=== PATIENT | male | born 1950 | race African-American/Black ===

== ENCOUNTER 2017-02-21 09:12 | Inpatient (IN) | payer OTHER ==
[2017-02-21 09:54] VITALS: BMI 38.5
--- NOTE | 2017-02-21 11:52 | HP ---
CIWA Score - CIWA Score Nausea/Vomitin Muscle Tremors: None Anxiety: 4-Mod. Anxious/Guarded Agitation: 3 Paroxysmal Sweats: 3 Orientation: 0-Oriented Tacttile Disturbances: 1-Very Mild Itch/Numbness Auditory Disturbances: 0-None Visual Disturbances: 0-None Headache: 0-None Present CIWA-Ar Total Score: 14 Admission ROS [facility] - HPI Allergies/Adverse Reactions: Allergies Allergy/AdvReac Type Severity Reaction Status Date / Time No Known Allergies Allergy Unverified 04/02/12 12:28 History of Present Illness: I'm sick and tired of drinking alcohol Exam Limitations: No Limitations - Ebola screening Have you traveled outside of the country in the last 21 days: No (N) Have you had contact with anyone from an Ebola affected area: No Have you been sick,other than usual withdrawal symptoms: No Do you have a fever: No - Review of Systems Constitutional: Chills EENT: reports: No Symptoms Reported Respiratory: reports: Shortness of Breath (occasional) Cardiac: reports: No Symptoms Reported GI: reports: Nausea : reports: Incontinence Musculoskeletal: reports: Muscle Pain Integumentary: reports: No Symptoms Reported Neuro: reports: Numbness (in fingers), Tingling Endocrine: reports: No Symptoms Reported Hematology: reports: Anemia Psychiatric: reports: Anxious Patient History - Patient Medical History Hx Asthma: Yes Hx Chronic Obstructive Pulmonary Disease (COPD): No Hx Cardiac Disorders: Yes (mild [place] 5-6 years ago; Angina) Hx Hypertension: Yes Hx Hypercholesterolemia: Yes Hx Seizures: No Hx Diabetes: Yes (BGM-153 (borderline, not on meds)) Hx Gastrointestinal Disorders: No Hx Genitourinary Disorders: No Hx Sexually Transmitted Disorders: No Hx Renal Disease (ESRD): No Hx Thyroid Disease: No Hx Human Immunodeficiency Virus (HIV): No Hx Hepatitis C: No Hx Depression: No Hx Suicide Attempt: No Hx Bipolar Disorder: No Hx Schizophrenia: No - Patient Surgical History Past Surgical History: Yes Hx Neurologic Surgery: No Hx Cataract Extraction: No Hx Cardiac Surgery: No Hx Lung Surgery: No Hx Breast Surgery: No Hx Breast Biopsy: No Hx Abdominal Surgery: No Hx Appendectomy: No Hx Genitourinary Surgery: No Hx Orthopedic Surgery: Yes (fx jaw > 10 years ago) Anesthesia Reaction: No - PPD History Previous Implant?: Yes Documented Results: Negative w/o proof Implanted On Prior [facility] Admission?: No PPD to be Administered?: Yes - Reproductive History Patient is a Female of Child Bearing Age (11 -55 yrs old): No (male patient) - Smoking Cessation Smoking history: Never smoked - Substance & Tx. History Hx Alcohol Use: Yes Substance Use Type: Alcohol - Substances Abused Alcohol Route: Oral Frequency: Daily Amount used: vodka(1 pint) Age of first use: 12 Date of Last Use: 02/21/17 (last use 5am) Family Disease History - Family Disease History Family Disease History: Heart Disease: Mother (DM; from [place] at age 70's) , Sister ( from [place] at age 60's) Admission Physical Exam [facility] - Vital Signs Vital Signs: Vital Signs - 24 hr 02/21/17 09:52 Temperature 98.2 F Pulse Rate 72 Respiratory 20 Rate Blood Pressure 166/92 - Physical General Appearance: Yes: Within Normal Limits HEENTM: Yes: Within Normal Limits Respiratory: Yes: Within Normal Limits, Lungs Clear Neck: Yes: Within Normal Limits Breast: Yes: Within Normal Limits Cardiology: Yes: Within Normal Limits, Regular Rate, S1, S2 (apical rate 68 bpm) Abdominal: Yes: Within Normal Limits Genitourinary: Yes: Within Normal Limits Back: Yes: Within Normal Limits Musculoskeletal: Yes: Within Normal Limits, full range of Motion, Gait Steady Extremities: Yes: Within Normal Limits Neurological: Yes: Within Normal Limits, Fully Oriented, Alert Integumentary: Yes: Within Normal Limits (skin very dry/scaly) Cleared for Admission [facility] - Detox or Rehab [facility] Level of Care: Medically Supervised [facility] Breath Alcohol Content Breath Alcohol Content: 0 Urine Drug Screen - Results Drug Screen Negative: Yes
[2017-02-21] MEDS ORDERED: MAGNESIUM HYDROX 2400MG/30ML ORAL SUSPENSION 30 ML CUP PO PRN (12:18)
[2017-02-21] MEDS ORDERED: MAG HYDROX/AL HYDROX/SIMETH 30 ML UNIT-DOSE CUP PO PRN (12:18)
[2017-02-21] MEDS ORDERED: P-EPHED 60MG/TRIPROLIDI 2.5MG TABLET PO PRN (12:18)
[2017-02-21] MEDS ORDERED: chlordiazePOXIDE HCL 25 MG CAPSULE PO PRN (12:18)
[2017-02-21] MEDS ORDERED: MENTHOL/PHENOL 1 EACH UD MM PRN (12:18)
[2017-02-21] MEDS ORDERED: LOPERAMIDE HCL 2 MG CAPSULE PO PRN (12:18)
[2017-02-21] MEDS ORDERED: ACETAMINOPHEN 325 MG TABLET (FP) PO PRN (12:18)
[2017-02-21] MEDS ORDERED: guaiFENesin/D-METHORPHAN HB 10 ML UNIT-DOSE CUPS PO PRN (12:18)
[2017-02-21] MEDS ORDERED: MAGNESIUM CITRATE 300 ML BOTTLE PO PRN (12:18)
[2017-02-21] MEDS ORDERED: chlordiazePOXIDE HCL 25 MG CAPSULE PO ONE (12:29)
[2017-02-21] MEDS: AMMONIUM LACTATE 12% LOTION 225 GM BOTTLE TP SCH ×2 (13:19→22:11)
--- NOTE | 2017-02-21 15:11 | EKG ---
Test Reason : Blood Pressure : / mmHG Vent. Rate : 069 BPM Atrial Rate : 069 BPM P-R Int : 206 ms QRS Dur : 146 ms QT Int : 470 ms P-R-T Axes : 030 -38 164 degrees QTc Int : 503 ms NORMAL SINUS RHYTHM Ventricular-paced rhythm ABNORMAL ECG NO PREVIOUS ECGS AVAILABLE Confirmed by Lj Brooks ([id number]) on 02/21/2017 3:11:24 PM Referred By: Confirmed By:Lj Brooks
[2017-02-21] MEDS ORDERED: DOCUSATE SODIUM 100 MG CAPSULE (FP) PO PRN (15:16)
[2017-02-21] MEDS ORDERED: NITROGLYCERIN SUBLINGUAL 1/150 0.4 MG TAB SL PRN (15:16)
--- NOTE | 2017-02-21 15:19 | PN ---
[facility] Progress Note Note: Results of Admission ECG's noted. Patient reports history of cardiac disorder and that he periodically consults outside attendance clerk, however, he is uncertain about specific types of cardiac disorder that he currently has. Patient denies chest pain / tightness and dizziness. Patient reports SOB, but reports chronic history of that symptom. Patient observed ambulating on unit with assistance of a cane. Dr. Delmar MD consulted on this matter. Repeat ECG ordered for tomorrow AM. Will re-evaluate at that time. Rafaela Garcia NP
[2017-02-21] MEDS: INSULIN SLIDING SCALE (NOVOLOG) 1 VIAL SQ SCH (17:04)
[2017-02-21] MEDS: chlordiazePOXIDE HCL 25 MG CAPSULE PO SCH ×2 (17:27→22:13)
[2017-02-21] MEDS: RANOLAZINE E.R. 500 MG TABLET (FP) PO SCH (22:13)
[2017-02-21] MEDS: THIAMINE HCL 100 MG TABLET (FP) PO SCH (22:13)
[2017-02-21] MEDS: VITAMINS A AND D TOPICAL OINTMENT 60 GM TUBE TP SCH (22:13)
[2017-02-21 22:25] LABS: URINE APPEARANCE CLEAR; URINE BILIRUBIN NEGATIVE (NEGATIVE); URINE BLOOD 1+ (NEGATIVE); URINE COLOR LTYELLOW; URINE GLUCOSE (UA) NEGATIVE (NEGATIVE); URINE KETONE NEGATIVE (NEGATIVE); URINE LEUK ESTERASE NEGATIVE (NEGATIVE); URINE NITRITE NEGATIVE (NEGATIVE); URINE UROBILINOGEN NEGATIVE mg/dL (0.2-1.0)
[2017-02-21 22:45] LABS: URINE PROTEIN 3+ (NEGATIVE)
[2017-02-21 23:13] LABS: URINE MUCUS RARE
[2017-02-22] MEDS: chlordiazePOXIDE HCL 25 MG CAPSULE PO SCH (06:03)
[2017-02-22] MEDS: INSULIN SLIDING SCALE (NOVOLOG) 1 VIAL SQ SCH ×3 (08:01→16:43)
[2017-02-22 09:52] LABS: CHLORIDE 111 mmol/L (98-107); HEMATOCRIT 39.2 % (35.4-49); HEMOGLOBIN 12.3 GM/dL (11.7-16.9); MCH 26.2 pg (25.7-33.7); MCHC 31.5 g/dl (32.0-35.9); MEAN CELL VOLUME 83.2 fl (80-96); MEAN PLT VOLUME 9.3 fl (7.5-11.1); PLATELET COUNT 238 K/MM3 (134-434); POTASSIUM 4.2 mmol/L (3.5-5.1); RBC 4.71 M/mm3 (4.00-5.60); RDW 14.8 % (11.9-15.9); SODIUM 145 mmol/L (136-145); WHITE BLOOD COUNT 6.2 K/mm3 (4.0-10.0)
[2017-02-22 10:10] LABS: ALBUMIN 3.3 g/dl (3.4-5.0); ALK PHOS 82 U/L (45-117); ANION GAP 6 (8-16); BILIRUBIN,TOTAL 0.6 mg/dL (0.2-1.0); BLOOD UREA NITROGEN 26 mg/dL (7-18); CALCIUM 9.6 mg/dL (8.5-10.1); CO2 28 mmol/L (21-32); CREATININE 2.2 mg/dL (0.7-1.3); GLUCOSE,RANDOM 116 mg/dL (74-106); SGOT/AST 16 U/L (15-37); SGPT/ALT 30 U/L (12-78); TOT PROT 7.4 g/dl (6.4-8.2)
--- NOTE | 2017-02-22 10:10 | PN ---
[facility] CIWA - CIWA Score Nausea/Vomitin-No Nausea/No Vomiting Muscle Tremors: 3 Anxiety: 3 Agitation: 3 Paroxysmal Sweats: 1-Minimal Palms Moist Orientation: 0-Oriented Tacttile Disturbances: 3-Moderate Itch/Numb/Burn Auditory Disturbances: 0-None Visual Disturbances: 0-None Headache: 0-None Present CIWA-Ar Total Score: 13 [facility] Progress Note (SOAP) Subjective: PT IS VERY SLEEPY AT ROUNDS BUT COMMUNICATIVE. STATES "THE MEDICINE KNOCKED ME OUT". ALERT O X 3 BUT POOR HISTORIAN REGARDING MEDICAL HX WHEN ASKED. Objective: 02/22/17 10:05 Vital Signs Temperature 96.3 F L 02/22/17 06:14 Pulse Rate 66 02/22/17 06:14 Respiratory Rate 18 02/22/17 06:14 Blood Pressure 139/68 02/22/17 06:14 O2 Sat by Pulse Oximetry (%) Laboratory Last Values WBC 6.2 K/mm3 (4.0-10.0) 02/22/17 06:00 RBC 4.71 M/mm3 (4.00-5.60) 02/22/17 06:00 Hgb 12.3 GM/dL (11.7-16.9) 02/22/17 06:00 Hct 39.2 % (35.4-49) 02/22/17 06:00 MCV 83.2 fl (80-96) 02/22/17 06:00 MCH 26.2 pg (25.7-33.7) 02/22/17 06:00 MCHC 31.5 g/dl (32.0-35.9) L 02/22/17 06:00 RDW 14.8 % (11.9-15.9) 02/22/17 06:00 Plt Count 238 K/MM3 (134-434) 02/22/17 06:00 MPV 9.3 fl (7.5-11.1) 02/22/17 06:00 Sodium 145 mmol/L (136-145) 02/22/17 06:00 Potassium 4.2 mmol/L (3.5-5.1) 02/22/17 06:00 Chloride 111 mmol/L (98-107) H 02/22/17 06:00 POC Glucometer 98 UNITS (80-120) 02/21/17 16:52 Ammonia 40.23 umol/L (11-32) H 02/22/17 07:30 Urine Color Ltyellow 02/21/17 15:45 Urine Appearance Clear 02/21/17 15:45 Urine pH 5.0 (5.0-8.0) 02/21/17 15:45 Ur Specific [place] 1.022 (1.001-1.035) 02/21/17 15:45 Urine Protein 3+ (NEGATIVE) H 02/21/17 15:45 Urine Glucose (UA) Negative (NEGATIVE) 02/21/17 15:45 Urine Ketones Negative (NEGATIVE) 02/21/17 15:45 Urine Blood 1+ (NEGATIVE) H 02/21/17 15:45 Urine Nitrite Negative (NEGATIVE) 02/21/17 15:45 Urine Bilirubin Negative (NEGATIVE) 02/21/17 15:45 Urine Urobilinogen Negative mg/dL (0.2-1.0) 02/21/17 15:45 Urine WBC (Auto) 1 /hpf (3-5) 02/21/17 15:45 Urine RBC (Auto) 2 /hpf (0-3) 02/21/17 15:45 Urine Mucus Rare 02/21/17 15:45 Hepatitis C Antibody <0.1 s/co ratio (0.0-0.9) 02/21/17 12:00 EKG REPEAT: SINUS BRADYCARDIA LEFT AXIS DEVIATION LEFT BUNDLE BRANCH BLOCK ABNORMAL EKG 02/22/17 10:10 DENIES CP, SOB, DIZZINESS. Assessment: 02/22/17 10:11 WITHDRAWAL SX ABNORMAL EKG--ASYMPTOMATIC Plan: CONTINUE MONITOR AND INTERVENE NEEDED. HOLD LIBRIUM X 24 HRS RE-EVALUATE IN AM
[2017-02-22] MEDS: amLODIPine BESYLATE 10 MG TABLET (FP) PO SCH (10:31)
[2017-02-22] MEDS: LISINOPRIL 20 MG TABLET (FP) PO SCH (10:31)
[2017-02-22] MEDS: ASPIRIN COATED 81 MG TABLET.EC PO SCH (10:31)
[2017-02-22] MEDS: RANOLAZINE E.R. 500 MG TABLET (FP) PO SCH ×2 (10:31→21:37)
[2017-02-22] MEDS: PRENATAL VITAMINS W/ FOLIC ACID TABLET (FP) PO SCH (10:31)
[2017-02-22] MEDS: VITAMINS A AND D TOPICAL OINTMENT 60 GM TUBE TP SCH ×2 (10:31→21:46)
[2017-02-22] MEDS: ISOSORBIDE MONONITRATE 60 MG TAB.SR.24H (FP) PO SCH (10:31)
[2017-02-22] MEDS: METOPROLOL SUCCINATE 25 MG TAB.SR.24H (FP) PO SCH (10:32)
[2017-02-22] MEDS: IBUPROFEN 400 MG TABLET (FP) PO PRN ×2 (10:33→17:18)
[2017-02-22] MEDS: AMMONIUM LACTATE 12% LOTION 225 GM BOTTLE TP SCH ×2 (10:35→21:47)
--- NOTE | 2017-02-22 13:27 | EKG ---
Test Reason : Blood Pressure : / mmHG Vent. Rate : 057 BPM Atrial Rate : 057 BPM P-R Int : 204 ms QRS Dur : 150 ms QT Int : 496 ms P-R-T Axes : 042 -44 134 degrees QTc Int : 482 ms SINUS BRADYCARDIA LEFT AXIS DEVIATION LEFT BUNDLE BRANCH BLOCK ABNORMAL ECG WHEN COMPARED WITH ECG OF 21-FEB-2017 14:07, T WAVE INVERSION NO LONGER EVIDENT IN INFERIOR LEADS Confirmed by PEDRO LUIS MONTELONGO, CLAUDIA ([id number]) on 02/22/2017 1:27:20 PM Referred By: Confirmed By:CLAUDIA CLOUD MD
[2017-02-22] MEDS ORDERED: chlordiazePOXIDE HCL 25 MG CAPSULE PO SCH (17:00)
--- NOTE | 2017-02-22 17:31 | PN ---
[facility] Progress Note Note: RECEIVED NURSE CALL THAT AMMONIA SERUM LEVEL 40.23 TWO DOSES OF LACTULOSE REPEAT AMMONIA SERUM LEVEL 02/24/17
[2017-02-22] MEDS: LACTULOSE 20 GM/30 ML UDC (FOR ORAL USE ONLY) PO SCH ×2 (18:07→21:37)
[2017-02-22] MEDS: THIAMINE HCL 100 MG TABLET (FP) PO SCH (21:37)
[2017-02-22] MEDS: ROSUVASTATIN CA 20 MG TABLET (FP) PO SCH (21:37)
[2017-02-23] MEDS: INSULIN SLIDING SCALE (NOVOLOG) 1 VIAL SQ SCH ×2 (06:25→16:59)
[2017-02-23] MEDS: ASPIRIN COATED 81 MG TABLET.EC PO SCH (10:36)
[2017-02-23] MEDS: RANOLAZINE E.R. 500 MG TABLET (FP) PO SCH ×2 (10:36→21:45)
[2017-02-23] MEDS: LISINOPRIL 20 MG TABLET (FP) PO SCH (10:36)
[2017-02-23] MEDS: amLODIPine BESYLATE 10 MG TABLET (FP) PO SCH (10:36)
[2017-02-23] MEDS: METOPROLOL SUCCINATE 25 MG TAB.SR.24H (FP) PO SCH (10:36)
[2017-02-23] MEDS: ISOSORBIDE MONONITRATE 60 MG TAB.SR.24H (FP) PO SCH (10:36)
[2017-02-23] MEDS: PRENATAL VITAMINS W/ FOLIC ACID TABLET (FP) PO SCH (10:36)
[2017-02-23] MEDS: AMMONIUM LACTATE 12% LOTION 225 GM BOTTLE TP SCH ×2 (10:36→22:42)
[2017-02-23] MEDS: ROSUVASTATIN CA 20 MG TABLET (FP) PO SCH (10:36)
--- NOTE | 2017-02-23 10:36 | PN ---
[facility] CIWA - CIWA Score Nausea/Vomitin-No Nausea/No Vomiting Muscle Tremors: 3 Anxiety: 4-Mod. Anxious/Guarded Agitation: 3 Paroxysmal Sweats: 1-Minimal Palms Moist Orientation: 0-Oriented Tacttile Disturbances: 3-Moderate Itch/Numb/Burn Auditory Disturbances: 0-None Visual Disturbances: 0-None Headache: 0-None Present CIWA-Ar Total Score: 14 S Progress Note (SOAP) Subjective: ANXIETY,CHILLS,FATIGUE,BACK PAIN. PT STATES HE FELL AND LANDED ON BOTH KNEES AND HANDS WHILE REACHING OUT FOR LOTION ON HIS BEDSIDE TRAY FROM A SITTING POSITION ON A CHAIR. PT DENIES ANY INJURY OR PAIN. Objective: 02/23/17 10:33 Vital Signs Temperature 98.4 F 02/23/17 09:31 Pulse Rate 76 02/23/17 09:31 Respiratory Rate 18 02/23/17 09:31 Blood Pressure 124/72 02/23/17 09:31 O2 Sat by Pulse Oximetry (%) Laboratory Last Values WBC 6.2 K/mm3 (4.0-10.0) 02/22/17 06:00 RBC 4.71 M/mm3 (4.00-5.60) 02/22/17 06:00 Hgb 12.3 GM/dL (11.7-16.9) 02/22/17 06:00 Hct 39.2 % (35.4-49) 02/22/17 06:00 MCV 83.2 fl (80-96) 02/22/17 06:00 MCH 26.2 pg (25.7-33.7) 02/22/17 06:00 MCHC 31.5 g/dl (32.0-35.9) L 02/22/17 06:00 RDW 14.8 % (11.9-15.9) 02/22/17 06:00 Plt Count 238 K/MM3 (134-434) 02/22/17 06:00 MPV 9.3 fl (7.5-11.1) 02/22/17 06:00 Sodium 145 mmol/L (136-145) 02/22/17 06:00 Potassium 4.2 mmol/L (3.5-5.1) 02/22/17 06:00 Chloride 111 mmol/L (98-107) H 02/22/17 06:00 Carbon Dioxide 28 mmol/L (21-32) 02/22/17 06:00 Anion Gap 6 (8-16) L 02/22/17 06:00 BUN 26 mg/dL (7-18) H 02/22/17 06:00 Creatinine 2.2 mg/dL (0.7-1.3) H 02/22/17 06:00 Creat Clearance w eGFR 30.00 (>60) 02/22/17 06:00 POC Glucometer 94 UNITS (80-120) 02/22/17 16:23 Random Glucose 116 mg/dL (74-106) H 02/22/17 06:00 Calcium 9.6 mg/dL (8.5-10.1) 02/22/17 06:00 Total Bilirubin 0.6 mg/dL (0.2-1.0) 02/22/17 06:00 AST 16 U/L (15-37) 02/22/17 06:00 ALT 30 U/L (12-78) 02/22/17 06:00 Alkaline Phosphatase 82 U/L (45-117) 02/22/17 06:00 Ammonia 40.23 umol/L (11-32) H 02/22/17 07:30 Total Protein 7.4 g/dl (6.4-8.2) 02/22/17 06:00 Albumin 3.3 g/dl (3.4-5.0) L 02/22/17 06:00 Urine Color Ltyellow 02/21/17 15:45 Urine Appearance Clear 02/21/17 15:45 Urine pH 5.0 (5.0-8.0) 02/21/17 15:45 Ur Specific [place] 1.022 (1.001-1.035) 02/21/17 15:45 Urine Protein 3+ (NEGATIVE) H 02/21/17 15:45 Urine Glucose (UA) Negative (NEGATIVE) 02/21/17 15:45 Urine Ketones Negative (NEGATIVE) 02/21/17 15:45 Urine Blood 1+ (NEGATIVE) H 02/21/17 15:45 Urine Nitrite Negative (NEGATIVE) 02/21/17 15:45 Urine Bilirubin Negative (NEGATIVE) 02/21/17 15:45 Urine Urobilinogen Negative mg/dL (0.2-1.0) 02/21/17 15:45 Ur Leukocyte Esterase Negative (NEGATIVE) 02/21/17 15:45 Urine WBC (Auto) 1 /hpf (3-5) 02/21/17 15:45 Urine RBC (Auto) 2 /hpf (0-3) 02/21/17 15:45 Urine Mucus Rare 02/21/17 15:45 RPR Titer Nonreactive (NONREACTIVE) 02/22/17 06:00 Hepatitis C Antibody <0.1 s/co ratio (0.0-0.9) 02/21/17 12:00 Assessment: 02/23/17 10:33 WITHDRAWAL SX Plan: CONTINUE DETOX FALL PRECAUTIONS/PROTOCOL#2
[2017-02-23] MEDS: VITAMINS A AND D TOPICAL OINTMENT 60 GM TUBE TP SCH ×2 (10:37→22:43)
[2017-02-23] MEDS: chlordiazePOXIDE 5 MG CAPSULE PO SCH ×2 (17:26→22:42)
--- NOTE | 2017-02-23 18:00 | PN ---
[facility] Progress Note Note: hold librium 15 mg x 1 for dizziness continue fall protocol
[2017-02-23] MEDS: THIAMINE HCL 100 MG TABLET (FP) PO SCH (21:45)
[2017-02-23] MEDS: IBUPROFEN 400 MG TABLET (FP) PO PRN (21:54)
[2017-02-24] MEDS: chlordiazePOXIDE 5 MG CAPSULE PO SCH ×2 (07:05→12:01)
[2017-02-24] MEDS: INSULIN SLIDING SCALE (NOVOLOG) 1 VIAL SQ SCH ×2 (07:06→17:02)
[2017-02-24] MEDS: PRENATAL VITAMINS W/ FOLIC ACID TABLET (FP) PO SCH (10:23)
[2017-02-24] MEDS: METOPROLOL SUCCINATE 25 MG TAB.SR.24H (FP) PO SCH (10:23)
[2017-02-24] MEDS: AMMONIUM LACTATE 12% LOTION 225 GM BOTTLE TP SCH ×2 (10:24→22:22)
[2017-02-24] MEDS: ISOSORBIDE MONONITRATE 60 MG TAB.SR.24H (FP) PO SCH (10:24)
[2017-02-24] MEDS: amLODIPine BESYLATE 10 MG TABLET (FP) PO SCH (10:24)
[2017-02-24] MEDS: LISINOPRIL 20 MG TABLET (FP) PO SCH (10:24)
[2017-02-24] MEDS: ASPIRIN COATED 81 MG TABLET.EC PO SCH (10:24)
[2017-02-24] MEDS: IBUPROFEN 400 MG TABLET (FP) PO PRN ×2 (10:27→19:55)
[2017-02-24] MEDS: RANOLAZINE E.R. 500 MG TABLET (FP) PO SCH ×2 (11:49→22:19)
[2017-02-24] MEDS: ROSUVASTATIN CA 20 MG TABLET (FP) PO SCH (11:49)
[2017-02-24] MEDS: VITAMINS A AND D TOPICAL OINTMENT 60 GM TUBE TP SCH ×2 (11:49→22:22)
--- NOTE | 2017-02-24 11:59 | PN ---
S Progress Note (SOAP) Subjective: ALERT O X 3. SITTING IN BED WITH NAD. NO C/O DIZZINESS OR HEADACHE. Objective: 02/24/17 11:58 Vital Signs Temperature 97.5 F L 02/24/17 09:26 Pulse Rate 77 02/24/17 09:26 Respiratory Rate 20 02/24/17 09:26 Blood Pressure 161/84 02/24/17 09:26 O2 Sat by Pulse Oximetry (%) Laboratory Last Values WBC 6.2 K/mm3 (4.0-10.0) 02/22/17 06:00 RBC 4.71 M/mm3 (4.00-5.60) 02/22/17 06:00 Hgb 12.3 GM/dL (11.7-16.9) 02/22/17 06:00 Hct 39.2 % (35.4-49) 02/22/17 06:00 MCV 83.2 fl (80-96) 02/22/17 06:00 MCH 26.2 pg (25.7-33.7) 02/22/17 06:00 MCHC 31.5 g/dl (32.0-35.9) L 02/22/17 06:00 RDW 14.8 % (11.9-15.9) 02/22/17 06:00 Plt Count 238 K/MM3 (134-434) 02/22/17 06:00 MPV 9.3 fl (7.5-11.1) 02/22/17 06:00 Sodium 145 mmol/L (136-145) 02/22/17 06:00 Potassium 4.2 mmol/L (3.5-5.1) 02/22/17 06:00 Chloride 111 mmol/L (98-107) H 02/22/17 06:00 Carbon Dioxide 28 mmol/L (21-32) 02/22/17 06:00 Anion Gap 6 (8-16) L 02/22/17 06:00 BUN 26 mg/dL (7-18) H 02/22/17 06:00 Creatinine 2.2 mg/dL (0.7-1.3) H 02/22/17 06:00 Creat Clearance w eGFR 30.00 (>60) 02/22/17 06:00 POC Glucometer 123 UNITS (80-120) 02/24/17 06:03 Random Glucose 116 mg/dL (74-106) H 02/22/17 06:00 Calcium 9.6 mg/dL (8.5-10.1) 02/22/17 06:00 Total Bilirubin 0.6 mg/dL (0.2-1.0) 02/22/17 06:00 AST 16 U/L (15-37) 02/22/17 06:00 ALT 30 U/L (12-78) 02/22/17 06:00 Alkaline Phosphatase 82 U/L (45-117) 02/22/17 06:00 Ammonia 40.23 umol/L (11-32) H 02/22/17 07:30 Total Protein 7.4 g/dl (6.4-8.2) 02/22/17 06:00 Albumin 3.3 g/dl (3.4-5.0) L 02/22/17 06:00 Urine Color Ltyellow 02/21/17 15:45 Urine Appearance Clear 02/21/17 15:45 Urine pH 5.0 (5.0-8.0) 02/21/17 15:45 Ur Specific [place] 1.022 (1.001-1.035) 02/21/17 15:45 Urine Protein 3+ (NEGATIVE) H 02/21/17 15:45 Urine Glucose (UA) Negative (NEGATIVE) 02/21/17 15:45 Urine Ketones Negative (NEGATIVE) 02/21/17 15:45 Urine Blood 1+ (NEGATIVE) H 02/21/17 15:45 Urine Nitrite Negative (NEGATIVE) 02/21/17 15:45 Urine Bilirubin Negative (NEGATIVE) 02/21/17 15:45 Urine Urobilinogen Negative mg/dL (0.2-1.0) 02/21/17 15:45 Ur Leukocyte Esterase Negative (NEGATIVE) 02/21/17 15:45 Urine WBC (Auto) 1 /hpf (3-5) 02/21/17 15:45 Urine RBC (Auto) 2 /hpf (0-3) 02/21/17 15:45 Urine Mucus Rare 02/21/17 15:45 RPR Titer Nonreactive (NONREACTIVE) 02/22/17 06:00 Hepatitis C Antibody <0.1 s/co ratio (0.0-0.9) 02/21/17 12:00 Assessment: 02/24/17 11:58 DECREASED WITHDRAWAL SX Plan: CONTINUE DETOX
[2017-02-24] MEDS: LACTULOSE 20 GM/30 ML UDC (FOR ORAL USE ONLY) PO SCH ×2 (15:06→22:22)
[2017-02-24] MEDS: chlordiazePOXIDE HCL 10 MG CAPSULE PO SCH ×2 (17:25→22:22)
[2017-02-24] MEDS: THIAMINE HCL 100 MG TABLET (FP) PO SCH (22:19)
[2017-02-25] MEDS: chlordiazePOXIDE HCL 10 MG CAPSULE PO SCH ×2 (05:47→10:33)
[2017-02-25] MEDS: INSULIN SLIDING SCALE (NOVOLOG) 1 VIAL SQ SCH (07:34)
[2017-02-25 09:49] VITALS: BP 158/85; PULSE 73; TEMP 97
[2017-02-25] MEDS: PRENATAL VITAMINS W/ FOLIC ACID TABLET (FP) PO SCH (10:33)
[2017-02-25] MEDS: METOPROLOL SUCCINATE 25 MG TAB.SR.24H (FP) PO SCH (10:33)
[2017-02-25] MEDS: ASPIRIN COATED 81 MG TABLET.EC PO SCH (10:33)
[2017-02-25] MEDS: LISINOPRIL 20 MG TABLET (FP) PO SCH (10:33)
[2017-02-25] MEDS: RANOLAZINE E.R. 500 MG TABLET (FP) PO SCH (10:33)
[2017-02-25] MEDS: amLODIPine BESYLATE 10 MG TABLET (FP) PO SCH (10:33)
[2017-02-25] MEDS: ISOSORBIDE MONONITRATE 60 MG TAB.SR.24H (FP) PO SCH (10:34)
[2017-02-25] MEDS: LACTULOSE 20 GM/30 ML UDC (FOR ORAL USE ONLY) PO SCH (10:34)
[2017-02-25] MEDS: ROSUVASTATIN CA 20 MG TABLET (FP) PO SCH (10:37)
[2017-02-25] MEDS: AMMONIUM LACTATE 12% LOTION 225 GM BOTTLE TP SCH (12:04)
[2017-02-25] MEDS: VITAMINS A AND D TOPICAL OINTMENT 60 GM TUBE TP SCH (12:04)
--- NOTE | 2017-02-25 19:11 | PN ---
S Progress Note (SOAP) Subjective: Late Entry Reports resolved withdrawal sx Objective: 02/25/17 19:09 Laboratory Last Values WBC 6.2 K/mm3 (4.0-10.0) 02/22/17 06:00 RBC 4.71 M/mm3 (4.00-5.60) 02/22/17 06:00 Hgb 12.3 GM/dL (11.7-16.9) 02/22/17 06:00 Hct 39.2 % (35.4-49) 02/22/17 06:00 MCV 83.2 fl (80-96) 02/22/17 06:00 MCH 26.2 pg (25.7-33.7) 02/22/17 06:00 MCHC 31.5 g/dl (32.0-35.9) L 02/22/17 06:00 RDW 14.8 % (11.9-15.9) 02/22/17 06:00 Plt Count 238 K/MM3 (134-434) 02/22/17 06:00 MPV 9.3 fl (7.5-11.1) 02/22/17 06:00 Sodium 145 mmol/L (136-145) 02/22/17 06:00 Potassium 4.2 mmol/L (3.5-5.1) 02/22/17 06:00 Chloride 111 mmol/L (98-107) H 02/22/17 06:00 Carbon Dioxide 28 mmol/L (21-32) 02/22/17 06:00 Anion Gap 6 (8-16) L 02/22/17 06:00 BUN 26 mg/dL (7-18) H 02/22/17 06:00 Creatinine 2.2 mg/dL (0.7-1.3) H 02/22/17 06:00 Creat Clearance w eGFR 30.00 (>60) 02/22/17 06:00 POC Glucometer 106 UNITS (80-120) 02/25/17 12:33 Random Glucose 116 mg/dL (74-106) H 02/22/17 06:00 Calcium 9.6 mg/dL (8.5-10.1) 02/22/17 06:00 Total Bilirubin 0.6 mg/dL (0.2-1.0) 02/22/17 06:00 AST 16 U/L (15-37) 02/22/17 06:00 ALT 30 U/L (12-78) 02/22/17 06:00 Alkaline Phosphatase 82 U/L (45-117) 02/22/17 06:00 Ammonia 87.2 umol/L (11-32) H 02/24/17 06:30 Total Protein 7.4 g/dl (6.4-8.2) 02/22/17 06:00 Albumin 3.3 g/dl (3.4-5.0) L 02/22/17 06:00 Urine Color Ltyellow 02/21/17 15:45 Urine Appearance Clear 02/21/17 15:45 Urine pH 5.0 (5.0-8.0) 02/21/17 15:45 Ur Specific [place] 1.022 (1.001-1.035) 02/21/17 15:45 Urine Protein 3+ (NEGATIVE) H 02/21/17 15:45 Urine Glucose (UA) Negative (NEGATIVE) 02/21/17 15:45 Urine Ketones Negative (NEGATIVE) 02/21/17 15:45 Urine Blood 1+ (NEGATIVE) H 02/21/17 15:45 Urine Nitrite Negative (NEGATIVE) 02/21/17 15:45 Urine Bilirubin Negative (NEGATIVE) 02/21/17 15:45 Urine Urobilinogen Negative mg/dL (0.2-1.0) 02/21/17 15:45 Ur Leukocyte Esterase Negative (NEGATIVE) 02/21/17 15:45 Urine WBC (Auto) 1 /hpf (3-5) 02/21/17 15:45 Urine RBC (Auto) 2 /hpf (0-3) 02/21/17 15:45 Urine Mucus Rare 02/21/17 15:45 RPR Titer Nonreactive (NONREACTIVE) 02/22/17 06:00 Hepatitis C Antibody <0.1 s/co ratio (0.0-0.9) 02/21/17 12:00 Labs noted Assessment: 02/25/17 19:09 Resolved withdrawal sx Plan: Transfer to rehab
--- NOTE | 2017-02-27 12:46 | DS ---
[facility] Detox Discharge Summary Admission Date: 02/21/17 Discharge Date: 02/25/17 - History Present History: Alcohol Dependence Additional Comments: patietn going to 5N rehab Pertinent Past History: anxiety, depression, insomnia, angina, nicotine dependence, HTN, dm, copnstipation - Physical Exam Results Vital Signs: Vital Signs Temperature 97.0 F L 02/25/17 09:48 Pulse Rate 73 02/25/17 09:48 Respiratory Rate 17 02/25/17 09:48 Blood Pressure 158/85 02/25/17 09:48 O2 Sat by Pulse Oximetry (%) Laboratory Tests 02/21/17 02/21/17 02/21/17 11:02 12:00 15:45 WBC RBC Hgb Hct MCV MCH MCHC RDW Plt Count MPV Sodium Potassium Chloride Carbon Dioxide Anion Gap BUN Creatinine Creat Clearance w eGFR POC Glucometer 153 Random Glucose Calcium Total Bilirubin AST ALT Alkaline Phosphatase Ammonia Total Protein Albumin Urine Color Ltyellow Urine Appearance Clear Urine pH 5.0 Ur Specific [place] 1.022 Urine Protein 3+ H Urine Glucose (UA) Negative Urine Ketones Negative Urine Blood 1+ H Urine Nitrite Negative Urine Bilirubin Negative Urine Urobilinogen Negative Ur Leukocyte Esterase Negative Urine WBC (Auto) 1 Urine RBC (Auto) 2 Urine Mucus Rare RPR Titer Hepatitis C Antibody <0.1 02/21/17 02/22/17 02/22/17 16:52 06:00 06:00 WBC 6.2 RBC 4.71 Hgb 12.3 Hct 39.2 MCV 83.2 MCH 26.2 MCHC 31.5 L RDW 14.8 Plt Count 238 MPV 9.3 Sodium 145 Potassium 4.2 Chloride 111 H Carbon Dioxide 28 Anion Gap 6 L BUN 26 H Creatinine 2.2 H Creat Clearance w eGFR 30.00 POC Glucometer 98 Random Glucose 116 H Calcium 9.6 Total Bilirubin 0.6 AST 16 ALT 30 Alkaline Phosphatase 82 Ammonia Total Protein 7.4 Albumin 3.3 L Urine Color Urine Appearance Urine pH Ur Specific [place] Urine Protein Urine Glucose (UA) Urine Ketones Urine Blood Urine Nitrite Urine Bilirubin Urine Urobilinogen Ur Leukocyte Esterase Urine WBC (Auto) Urine RBC (Auto) Urine Mucus RPR Titer Hepatitis C Antibody 02/22/17 02/22/17 02/22/17 06:00 07:30 16:23 WBC RBC Hgb Hct MCV MCH MCHC RDW Plt Count MPV Sodium Potassium Chloride Carbon Dioxide Anion Gap BUN Creatinine Creat Clearance w eGFR POC Glucometer 94 Random Glucose Calcium Total Bilirubin AST ALT Alkaline Phosphatase Ammonia 40.23 H Total Protein Albumin Urine Color Urine Appearance Urine pH Ur Specific [place] Urine Protein Urine Glucose (UA) Urine Ketones Urine Blood Urine Nitrite Urine Bilirubin Urine Urobilinogen Ur Leukocyte Esterase Urine WBC (Auto) Urine RBC (Auto) Urine Mucus RPR Titer Nonreactive Hepatitis C Antibody 02/23/17 02/24/17 02/24/17 16:30 06:03 06:30 WBC RBC Hgb Hct MCV MCH MCHC RDW Plt Count MPV Sodium Potassium Chloride Carbon Dioxide Anion Gap BUN Creatinine Creat Clearance w eGFR POC Glucometer 116 123 Random Glucose Calcium Total Bilirubin AST ALT Alkaline Phosphatase Ammonia 87.2 H Total Protein Albumin Urine Color Urine Appearance Urine pH Ur Specific [place] Urine Protein Urine Glucose (UA) Urine Ketones Urine Blood Urine Nitrite Urine Bilirubin Urine Urobilinogen Ur Leukocyte Esterase Urine WBC (Auto) Urine RBC (Auto) Urine Mucus RPR Titer Hepatitis C Antibody 02/24/17 02/25/17 13:27 12:33 WBC RBC Hgb Hct MCV MCH MCHC RDW Plt Count MPV Sodium Potassium Chloride Carbon Dioxide Anion Gap BUN Creatinine Creat Clearance w eGFR POC Glucometer 115 106 Random Glucose Calcium Total Bilirubin AST ALT Alkaline Phosphatase Ammonia Total Protein Albumin Urine Color Urine Appearance Urine pH Ur Specific [place] Urine Protein Urine Glucose (UA) Urine Ketones Urine Blood Urine Nitrite Urine Bilirubin Urine Urobilinogen Ur Leukocyte Esterase Urine WBC (Auto) Urine RBC (Auto) Urine Mucus RPR Titer Hepatitis C Antibody elevated bun and creatinine Pertinent Admission Physical Exam Findings: withdrawal sx - Medication Discharge Medications: Ambulatory Orders Amlodipine Besylate [Norvasc -] 10 mg PO DAILY 02/21/17 Aspirin [Aspirin EC] 81 mg PO DAILY 02/21/17 Ergocalciferol (Vitamin D2) [Vitamin D2] 50,000 unit PO WEEKLY 02/21/17 Isosorbide Mononitrate [Imdur -] 60 mg PO DAILY 02/21/17 Lisinopril 20 mg PO DAILY 02/21/17 Metoprolol Succinate [Toprol XL -] 25 mg PO DAILY 02/21/17 Nitroglycerin 0.4 mg SL PRN PRN 02/21/17 Ranolazine [Ranexa -] 500 mg PO BID 02/21/17 Rosuvastatin [Crestor -] 20 mg PO DAILY 02/21/17 - Diagnosis (1) Alcohol dependence Status: Acute (2) Alcohol-induced mood disorder Status: Acute (3) Angina pectoris Status: Chronic (4) Falls Status: Chronic Qualifiers: (5) HLD (hyperlipidemia) Status: Chronic Qualifiers: (6) HTN (hypertension) Status: Chronic Qualifiers: (7) Type 2 diabetes mellitus with hyperglycemia Status: Chronic (8) Use of cane as ambulatory aid Status: Chronic - AMA Did Patient Leave Against Medical Advice: No
== END 2017-02-25 01:18 | disposition other institution (70) | DRG 897 ==
LOC: YASAS 09:12 → Y3N 11:49
PROVIDERS: ADMIT Internal Medicine; ATTEND Internal Medicine
PROC: HZ2ZZZZ Detoxification Services for Substance Abuse Treatment (ICD-10-PCS; principal; 2017-02-21)
DX: F10.230 Alcohol dependence with withdrawal, uncomplicated (principal); F10.24 Alcohol dependence with alcohol-induced mood disorder; I25.119 Atherosclerotic heart disease of native coronary artery with unspecified angina pectoris; I10 Essential (primary) hypertension; E78.5 Hyperlipidemia, unspecified; E11.65 Type 2 diabetes mellitus with hyperglycemia; R26.89 Other abnormalities of gait and mobility; Z99.89 Dependence on other enabling machines and devices; Z91.81 History of falling; Z59.0 Homelessness
CPT/HCPCS: 36415; 80053; 81003; 81015; 82140; 82962; 85027; 86593; 86803; 93005; 93010

== ENCOUNTER 2017-02-25 13:32 | Inpatient (IN) | payer OTHER ==
--- NOTE | 2017-02-25 15:22 | HP ---
[facility] Rehab Assess/Revision - Admission History Date of Admission to Rehab: 02/25/17 - Findings Detox History & Physical reviewed: Yes Concur with findings: Yes Comments/Additional Findings: for rehab as regimen Inpatient Rehab Admission - Initial Determination Are CD services needed?: Yes Free of communicable disease: Yes Not in need of hospitalization: Yes - Rehab Admission Criteria Previous failed treatment: Yes Poor recovery environment: Yes Comorbidities: Yes Patient is meeting Inpatient Rehab admission criteria:: Yes
[2017-02-25] MEDS ORDERED: hydrOXYzine PAMOATE 25 MG CAPSULE (FP) PO PRN (15:24)
[2017-02-25] MEDS ORDERED: MAGNESIUM HYDROX 2400MG/30ML ORAL SUSPENSION 30 ML CUP PO PRN (15:24)
[2017-02-25] MEDS ORDERED: MENTHOL/PHENOL 1 EACH UD MM PRN (15:24)
[2017-02-25] MEDS ORDERED: MAGNESIUM CITRATE 300 ML BOTTLE PO PRN (15:24)
[2017-02-25] MEDS ORDERED: ACETAMINOPHEN 325 MG TABLET (FP) PO PRN (15:24)
[2017-02-25] MEDS ORDERED: MAG HYDROX/AL HYDROX/SIMETH 30 ML UNIT-DOSE CUP PO PRN (15:24)
[2017-02-25] MEDS ORDERED: guaiFENesin/D-METHORPHAN HB 10 ML UNIT-DOSE CUPS PO PRN (15:24)
[2017-02-25] MEDS ORDERED: P-EPHED 60MG/TRIPROLIDI 2.5MG TABLET PO PRN (15:24)
[2017-02-25] MEDS ORDERED: NITROGLYCERIN SUBLINGUAL 1/150 0.4 MG TAB SL PRN (15:25)
[2017-02-25] MEDS ORDERED: DOCUSATE SODIUM 100 MG CAPSULE (FP) PO PRN (15:25)
[2017-02-25] MEDS: IBUPROFEN 400 MG TABLET (FP) PO PRN (19:56)
[2017-02-25] MEDS: LOPERAMIDE HCL 2 MG CAPSULE PO PRN (19:57)
[2017-02-25] MEDS: THIAMINE HCL 100 MG TABLET (FP) PO SCH (21:29)
[2017-02-25] MEDS: RANOLAZINE E.R. 500 MG TABLET (FP) PO SCH (21:29)
[2017-02-26] MEDS: RANOLAZINE E.R. 500 MG TABLET (FP) PO SCH ×2 (09:53→21:31)
[2017-02-26] MEDS: ASPIRIN COATED 81 MG TABLET.EC PO SCH (09:53)
[2017-02-26] MEDS: METOPROLOL SUCCINATE 25 MG TAB.SR.24H (FP) PO SCH (09:53)
[2017-02-26] MEDS: amLODIPine BESYLATE 10 MG TABLET (FP) PO SCH (09:53)
[2017-02-26] MEDS: PRENATAL VITAMINS W/ FOLIC ACID TABLET (FP) PO SCH (09:53)
[2017-02-26] MEDS: LISINOPRIL 20 MG TABLET (FP) PO SCH (09:53)
[2017-02-26] MEDS ORDERED: ROSUVASTATIN CA 10 MG TABLET (FP) ONE (11:32)
[2017-02-26] MEDS: ISOSORBIDE MONONITRATE 30 MG TAB.SR.24H (FP) PO SCH (11:40)
[2017-02-26] MEDS: ROSUVASTATIN CA 20 MG TABLET (FP) PO SCH (11:41)
[2017-02-26] MEDS: THIAMINE HCL 100 MG TABLET (FP) PO SCH (21:31)
[2017-02-27] MEDS: ROSUVASTATIN CA 20 MG TABLET (FP) PO SCH (10:44)
[2017-02-27] MEDS: ASPIRIN COATED 81 MG TABLET.EC PO SCH (10:44)
[2017-02-27] MEDS: RANOLAZINE E.R. 500 MG TABLET (FP) PO SCH ×2 (10:45→21:36)
[2017-02-27] MEDS: ISOSORBIDE MONONITRATE 30 MG TAB.SR.24H (FP) PO SCH (10:45)
[2017-02-27] MEDS: METOPROLOL SUCCINATE 25 MG TAB.SR.24H (FP) PO SCH (10:45)
[2017-02-27] MEDS: amLODIPine BESYLATE 10 MG TABLET (FP) PO SCH (10:45)
[2017-02-27] MEDS: LISINOPRIL 20 MG TABLET (FP) PO SCH (10:45)
[2017-02-27] MEDS: PRENATAL VITAMINS W/ FOLIC ACID TABLET (FP) PO SCH (10:45)
[2017-02-27] MEDS: LOPERAMIDE HCL 2 MG CAPSULE PO PRN (11:17)
--- NOTE | 2017-02-27 11:56 | HP ---
Psychiatrist Admission - Data Date of interview: 02/27/17 Admission source: 3N Identifying data: This is the first 5n inpatient rehabilitation admisssion for this 67 year old single AA male father of 5, unemployed and supported on SSI, he is domiciled. Medical History: HTN,asthma, NIDDM, hyperlipedemia, angina pectoris, fx jaw. Psychiatric History: Patient reports treated for depression "long time ago", he cannot recall medications name, denies history of psychiatric hospitalizations and no history of suicidal attempts. Physical/Sexual Abuse/Trauma History: Patient denies Vital Signs: Vital Signs - 24 hr 02/27/17 02/27/17 00:40 07:16 Temperature 98.3 F Pulse Rate 83 Respiratory 18 18 Rate Blood Pressure 147/84 Allergies/Adverse Reactions: Allergies Allergy/AdvReac Type Severity Reaction Status Date / Time No Known Allergies Allergy Unverified 02/25/17 14:54 Date of last physical exam: 02/22/17 Concur with the findings of this exam: Yes - Substance Abuse/Tx History Hx Alcohol Use: Yes (age at first use 15 year old, daily drinks 1 liter of vodka.) Hx Substance Use: No Substance Use Type: Alcohol Hx Substance Use Treatment: Yes ([facility] Mental Status Exam - Mental Status Exam Alert and Oriented to: Time, Place, Person Cognitive Function: Good Patient Appearance: Well Groomed Mood: Sad Affect: Appropriate, Mood Congruent Patient Behavior: Appropriate, Cooperative Speech Pattern: Clear, Appropriate Voice Loudness: Normal Thought Process: Intact, Goal Oriented Thought Disorder: Not Present Hallucinations: Denies Suicidal Ideation: Denies Homicidal Ideation: Denies Insight/Judgement: Fair Sleep: Fair Appetite: Fair Gait/Station: Other (walks with the cane.) Psychiatric Findings - Problem List ([place] 1, 2,3) (1) Alcohol dependence Current Visit: Yes Status: Acute (2) Alcohol-induced mood disorder Current Visit: Yes Status: Acute (3) Type 2 diabetes mellitus with hyperglycemia Current Visit: No Status: Chronic (4) HTN (hypertension) Current Visit: No Status: Chronic Qualifiers: (5) HLD (hyperlipidemia) Current Visit: No Status: Chronic Qualifiers: (6) Angina pectoris Current Visit: No Status: Chronic - Initial Treatment Plan Initial Treatment Plan: Psychoeducation and supportive therapy provided monitor progress as needed.
[2017-02-27] MEDS: THIAMINE HCL 100 MG TABLET (FP) PO SCH (21:37)
[2017-02-28] MEDS: METOPROLOL SUCCINATE 25 MG TAB.SR.24H (FP) PO SCH (10:01)
[2017-02-28] MEDS: PRENATAL VITAMINS W/ FOLIC ACID TABLET (FP) PO SCH (10:01)
[2017-02-28] MEDS: LISINOPRIL 20 MG TABLET (FP) PO SCH (10:01)
[2017-02-28] MEDS: RANOLAZINE E.R. 500 MG TABLET (FP) PO SCH ×2 (10:01→21:45)
[2017-02-28] MEDS: ISOSORBIDE MONONITRATE 30 MG TAB.SR.24H (FP) PO SCH (10:02)
[2017-02-28] MEDS: ASPIRIN COATED 81 MG TABLET.EC PO SCH (10:02)
[2017-02-28] MEDS: amLODIPine BESYLATE 10 MG TABLET (FP) PO SCH (10:02)
[2017-02-28] MEDS: ROSUVASTATIN CA 20 MG TABLET (FP) PO SCH (10:02)
[2017-02-28 10:31] LABS: CHLORIDE 106 mmol/L (98-107); POTASSIUM 4.2 mmol/L (3.5-5.1); SGPT/ALT 23 U/L (12-78); SODIUM 140 mmol/L (136-145)
[2017-02-28 10:36] LABS: ALBUMIN 3.4 g/dl (3.4-5.0); ALK PHOS 67 U/L (45-117); ANION GAP 4 (8-16); BILIRUBIN,TOTAL 0.9 mg/dL (0.2-1.0); BLOOD UREA NITROGEN 22 mg/dL (7-18); CALCIUM 9.1 mg/dL (8.5-10.1); CO2 30 mmol/L (21-32); CREATININE 2.3 mg/dL (0.7-1.3); GLUCOSE,RANDOM 127 mg/dL (74-106); SGOT/AST 18 U/L (15-37); TOT PROT 7.6 g/dl (6.4-8.2)
[2017-02-28 10:37] LABS: BASO % 0.4 % (0-2.0); EOS % 6.1 % (0-4.5); HEMATOCRIT 40.1 % (35.4-49); HEMOGLOBIN 12.7 GM/dL (11.7-16.9); LYMPH % 33.2 % (8-40); MCH 26.2 pg (25.7-33.7); MCHC 31.6 g/dl (32.0-35.9); MEAN PLT VOLUME 8.4 fl (7.5-11.1); MONO % 5.7 % (3.8-10.2); NEUT % 54.6 % (42.8-82.8); PLATELET COUNT 270 K/MM3 (134-434); RBC 4.84 M/mm3 (4.00-5.60); RDW 15.3 % (11.9-15.9); WHITE BLOOD COUNT 6.1 K/mm3 (4.0-10.0)
[2017-02-28] MEDS: THIAMINE HCL 100 MG TABLET (FP) PO SCH (21:45)
[2017-03-01] MEDS: ISOSORBIDE MONONITRATE 30 MG TAB.SR.24H (FP) PO SCH (09:58)
[2017-03-01] MEDS: LISINOPRIL 20 MG TABLET (FP) PO SCH (09:58)
[2017-03-01] MEDS: ASPIRIN COATED 81 MG TABLET.EC PO SCH (09:58)
[2017-03-01] MEDS: METOPROLOL SUCCINATE 25 MG TAB.SR.24H (FP) PO SCH (09:59)
[2017-03-01] MEDS: RANOLAZINE E.R. 500 MG TABLET (FP) PO SCH ×2 (09:59→21:33)
[2017-03-01] MEDS: PRENATAL VITAMINS W/ FOLIC ACID TABLET (FP) PO SCH (09:59)
[2017-03-01] MEDS: amLODIPine BESYLATE 10 MG TABLET (FP) PO SCH (10:00)
[2017-03-01] MEDS: ROSUVASTATIN CA 20 MG TABLET (FP) PO SCH (10:00)
[2017-03-01 10:14] LABS: URINE APPEARANCE CLEAR; URINE BILIRUBIN NEGATIVE (NEGATIVE); URINE BLOOD NEGATIVE (NEGATIVE); URINE COLOR AMBER; URINE GLUCOSE (UA) NEGATIVE (NEGATIVE); URINE KETONE NEGATIVE (NEGATIVE); URINE LEUK ESTERASE NEGATIVE (NEGATIVE); URINE NITRITE NEGATIVE (NEGATIVE); URINE UROBILINOGEN NEGATIVE mg/dL (0.2-1.0)
[2017-03-01 10:19] LABS: URINE PROTEIN 3+ (NEGATIVE)
[2017-03-01 10:48] LABS: GRANULAR CASTS 1 /lpf; URINE HYALINE CAST 4 /lpf; URINE MUCUS RARE
[2017-03-01] MEDS: THIAMINE HCL 100 MG TABLET (FP) PO SCH (21:33)
[2017-03-02] MEDS: ASPIRIN COATED 81 MG TABLET.EC PO SCH (10:05)
[2017-03-02] MEDS: RANOLAZINE E.R. 500 MG TABLET (FP) PO SCH ×2 (10:05→21:18)
[2017-03-02] MEDS: ROSUVASTATIN CA 20 MG TABLET (FP) PO SCH (10:05)
[2017-03-02] MEDS: METOPROLOL SUCCINATE 25 MG TAB.SR.24H (FP) PO SCH (10:05)
[2017-03-02] MEDS: amLODIPine BESYLATE 10 MG TABLET (FP) PO SCH (10:05)
[2017-03-02] MEDS: PRENATAL VITAMINS W/ FOLIC ACID TABLET (FP) PO SCH (10:05)
[2017-03-02] MEDS: LISINOPRIL 20 MG TABLET (FP) PO SCH (10:05)
[2017-03-02] MEDS: ISOSORBIDE MONONITRATE 60 MG TAB.SR.24H (FP) PO SCH (10:07)
[2017-03-02] MEDS: IBUPROFEN 400 MG TABLET (FP) PO PRN (20:17)
[2017-03-02] MEDS: THIAMINE HCL 100 MG TABLET (FP) PO SCH (21:18)
[2017-03-03] MEDS: PRENATAL VITAMINS W/ FOLIC ACID TABLET (FP) PO SCH (11:33)
[2017-03-03] MEDS: amLODIPine BESYLATE 10 MG TABLET (FP) PO SCH (11:33)
[2017-03-03] MEDS: ISOSORBIDE MONONITRATE 60 MG TAB.SR.24H (FP) PO SCH (11:33)
[2017-03-03] MEDS: ROSUVASTATIN CA 20 MG TABLET (FP) PO SCH (11:34)
[2017-03-03] MEDS: ASPIRIN COATED 81 MG TABLET.EC PO SCH (11:34)
[2017-03-03] MEDS: LISINOPRIL 20 MG TABLET (FP) PO SCH (11:34)
[2017-03-03] MEDS: RANOLAZINE E.R. 500 MG TABLET (FP) PO SCH ×2 (11:34→21:42)
[2017-03-03] MEDS: METOPROLOL SUCCINATE 25 MG TAB.SR.24H (FP) PO SCH (11:35)
[2017-03-03] MEDS: THIAMINE HCL 100 MG TABLET (FP) PO SCH (21:42)
[2017-03-04 06:57] VITALS: TEMP 97.8
[2017-03-04] MEDS: amLODIPine BESYLATE 10 MG TABLET (FP) PO SCH (09:36)
[2017-03-04] MEDS: ROSUVASTATIN CA 20 MG TABLET (FP) PO SCH (09:36)
[2017-03-04] MEDS: ASPIRIN COATED 81 MG TABLET.EC PO SCH (09:36)
[2017-03-04] MEDS: PRENATAL VITAMINS W/ FOLIC ACID TABLET (FP) PO SCH (09:36)
[2017-03-04] MEDS: METOPROLOL SUCCINATE 25 MG TAB.SR.24H (FP) PO SCH (09:36)
[2017-03-04] MEDS: RANOLAZINE E.R. 500 MG TABLET (FP) PO SCH ×2 (09:36→21:23)
[2017-03-04] MEDS: ISOSORBIDE MONONITRATE 60 MG TAB.SR.24H (FP) PO SCH (09:36)
[2017-03-04] MEDS: LISINOPRIL 20 MG TABLET (FP) PO SCH (09:36)
[2017-03-04] MEDS: IBUPROFEN 400 MG TABLET (FP) PO PRN (09:37)
[2017-03-04] MEDS: THIAMINE HCL 100 MG TABLET (FP) PO SCH (21:22)
[2017-03-05] MEDS: METOPROLOL SUCCINATE 25 MG TAB.SR.24H (FP) PO SCH (11:00)
[2017-03-05] MEDS: amLODIPine BESYLATE 10 MG TABLET (FP) PO SCH (11:00)
[2017-03-05] MEDS: ROSUVASTATIN CA 20 MG TABLET (FP) PO SCH (11:00)
[2017-03-05] MEDS: PRENATAL VITAMINS W/ FOLIC ACID TABLET (FP) PO SCH (11:00)
[2017-03-05] MEDS: ISOSORBIDE MONONITRATE 60 MG TAB.SR.24H (FP) PO SCH (11:00)
[2017-03-05] MEDS: ASPIRIN COATED 81 MG TABLET.EC PO SCH (11:00)
[2017-03-05] MEDS: LISINOPRIL 20 MG TABLET (FP) PO SCH (11:00)
[2017-03-05] MEDS: RANOLAZINE E.R. 500 MG TABLET (FP) PO SCH ×2 (11:00→21:22)
[2017-03-05] MEDS: THIAMINE HCL 100 MG TABLET (FP) PO SCH (21:22)
[2017-03-06] MEDS: PRENATAL VITAMINS W/ FOLIC ACID TABLET (FP) PO SCH (10:36)
[2017-03-06] MEDS: METOPROLOL SUCCINATE 25 MG TAB.SR.24H (FP) PO SCH (10:36)
[2017-03-06] MEDS: ISOSORBIDE MONONITRATE 60 MG TAB.SR.24H (FP) PO SCH (10:36)
[2017-03-06] MEDS: ASPIRIN COATED 81 MG TABLET.EC PO SCH (10:36)
[2017-03-06] MEDS: LISINOPRIL 20 MG TABLET (FP) PO SCH (10:36)
[2017-03-06] MEDS: RANOLAZINE E.R. 500 MG TABLET (FP) PO SCH ×2 (10:36→21:16)
[2017-03-06] MEDS: amLODIPine BESYLATE 10 MG TABLET (FP) PO SCH (10:36)
[2017-03-06] MEDS: ROSUVASTATIN CA 20 MG TABLET (FP) PO SCH (10:37)
[2017-03-06 12:25] VITALS: BP 136/71; PULSE 63
[2017-03-06] MEDS: THIAMINE HCL 100 MG TABLET (FP) PO SCH (21:16)
[2017-03-07] MEDS: PRENATAL VITAMINS W/ FOLIC ACID TABLET (FP) PO SCH (09:20)
[2017-03-07] MEDS: ROSUVASTATIN CA 20 MG TABLET (FP) PO SCH (09:20)
[2017-03-07] MEDS: amLODIPine BESYLATE 10 MG TABLET (FP) PO SCH (09:20)
[2017-03-07] MEDS: ASPIRIN COATED 81 MG TABLET.EC PO SCH (09:20)
[2017-03-07] MEDS: ISOSORBIDE MONONITRATE 60 MG TAB.SR.24H (FP) PO SCH (09:20)
[2017-03-07] MEDS: METOPROLOL SUCCINATE 25 MG TAB.SR.24H (FP) PO SCH (09:21)
[2017-03-07] MEDS: LISINOPRIL 20 MG TABLET (FP) PO SCH (09:21)
[2017-03-07] MEDS: RANOLAZINE E.R. 500 MG TABLET (FP) PO SCH (09:21)
--- NOTE | 2017-03-07 09:43 | PN ---
Psychiatric Progress Note Vital Signs: Vital Signs Period Temp Pulse Resp BP Sys/John Pulse Ox Last 24 Hr 63 16-17 136/71 Date of Session: 03/07/17 Chief Complaint:: discharge visit HPI: Patient has addressed alcohol dependence comorbid alcohol induced mood disorder. ROS: HTN, HLD, NIDDM, angina pectoris medically managed. Current Medications: Active Medications Generic Name Dose Route Start Last Admin Trade Name Freq PRN Reason Stop Dose Admin Acetaminophen 650 mg 02/25/17 15:24 03/01/17 02:04 Tylenol - PO 650 mg Q4H PRN Administration FEVER OR PAIN Al Hydroxide/Mg Hydroxide 30 ml 02/25/17 15:24 Mylanta Oral Suspension - PO Q6H PRN DYSPEPSIA Amlodipine Besylate 10 mg 02/26/17 10:00 03/07/17 09:20 Norvasc - PO Not Given DAILY [facility] Aspirin 81 mg 02/26/17 10:00 03/07/17 09:20 Ecotrin - PO Not Given DAILY [facility] Eucalyptus/Menthol/Phenol/Sorbitol 1 each 02/25/17 15:24 Cepastat Lozenge - MM Q4H PRN SORE THROAT Guaifenesin 10 ml 02/25/17 15:24 Robitussin Dm - PO Q6H PRN COUGH Hydroxyzine Pamoate 25 mg 02/25/17 15:24 Vistaril - PO Q4H PRN AGITATION Ibuprofen 400 mg 02/25/17 15:24 03/04/17 09:37 Motrin - PO 400 mg Q6H PRN Administration PAIN Isosorbide Mononitrate 60 mg 03/02/17 10:00 03/07/17 09:20 Imdur - PO Not Given DAILY [facility] Lisinopril 20 mg 02/26/17 10:00 03/07/17 09:21 Prinivil PO Not Given DAILY [facility] Loperamide HCl 4 mg 02/25/17 15:24 02/27/17 11:17 Imodium - PO 4 mg Q6H PRN Administration DIARRHEA Magnesium Citrate 300 ml 02/25/17 15:24 Citroma - PO Q48H PRN CONSTIPATION Magnesium Hydroxide 30 ml 02/25/17 15:24 Milk Of Magnesia - PO DAILY PRN CONSTIPATION Metoprolol Succinate 25 mg 02/26/17 10:00 03/07/17 09:21 Toprol Xl - PO Not Given DAILY [facility] Nitroglycerin 0.4 mg 02/25/17 15:25 Nitrostat - SL Q5M PRN FOR CHEST PAIN Multivit/Folic Acid/Iron 1 tab 02/26/17 10:00 03/07/17 09:20 Vitamins (Sjr) - PO Not Given DAILY [facility] Pseudoephedrine/Triprolidine 1 combo 02/25/17 15:24 Actifed - PO TID PRN NASAL CONGESTION Ranolazine 500 mg 02/25/17 22:00 03/07/17 09:21 Ranexa - PO Not Given BID [facility] Rosuvastatin Calcium 20 mg 02/26/17 10:00 03/07/17 09:20 Crestor - PO Not Given DAILY [facility] Thiamine HCl 100 mg 02/25/17 22:00 03/06/17 21:16 Vitamin B1 - PO 100 mg HS [facility] Administration Current Side Effect: No Lab tests ordered: No Lab tests reviewed: Yes Provider note:: Patient has completed today this program and met his goals, will continue to address his issues at [facility] outpatient treatment program, patient gained insight into his addiction, learned the importance of changing attitude for the utilization of supports available as well ways to improve coping skills to prevent relapses. Patient reports feeling well, he was encouraged to continue maintain abstinence , patient is stable for discharge today. Total face to face time:: 15 Mental Status Exam - Mental Status Exam Alert and Oriented to: Time, Place, Person Cognitive Function: Good Patient Appearance: Well Groomed Mood: Hopeful Affect: Appropriate, Mood Congruent Patient Behavior: Appropriate, Cooperative Speech Pattern: Clear, Appropriate Voice Loudness: Normal Thought Process: Goal Oriented, Disorganized Thought Disorder: Not Present Hallucinations: Denies Suicidal Ideation: Denies Homicidal Ideation: Denies Insight/Judgement: Fair Sleep: Fair Appetite: Good Muscle strength/Tone: Normal Gait/Station: Normal Psychiatric Treatment Plan - Problem List (1) Alcohol dependence Current Visit: Yes (2) Alcohol-induced mood disorder Current Visit: Yes (3) Type 2 diabetes mellitus with hyperglycemia Current Visit: No (4) HTN (hypertension) Current Visit: No Qualifiers: (5) HLD (hyperlipidemia) Current Visit: No Qualifiers: (6) Angina pectoris Current Visit: No
== END 2017-03-07 09:30 | disposition home or self-care (01) | DRG 895 ==
LOC: YASAS 13:32 → Y5N 13:35
PROVIDERS: ADMIT Psychiatry & Neurology Psychiatry; ATTEND Psychiatry & Neurology Psychiatry
PROC: HZ42ZZZ Group Counseling for Substance Abuse Treatment, Cognitive-Behavioral (ICD-10-PCS; principal; 2017-02-25)
DX: F10.20 Alcohol dependence, uncomplicated (principal); F10.24 Alcohol dependence with alcohol-induced mood disorder; E11.65 Type 2 diabetes mellitus with hyperglycemia; E78.5 Hyperlipidemia, unspecified; I10 Essential (primary) hypertension; I20.9 Angina pectoris, unspecified; R29.6 Repeated falls; R26.2 Difficulty in walking, not elsewhere classified; Z99.89 Dependence on other enabling machines and devices; Z59.0 Homelessness
CPT/HCPCS: 36415; 80053; 81003; 81015; 82140; 85025